=== PATIENT | female | born 1965 | race Caucasian/White ===

== ENCOUNTER → 2016-07-01 | Outpatient (CLI) | payer OTHER ==
--- NOTE | 2016-07-01 16:18 | DX ---
PA and Lateral Chest History: Cough and fever in a 51-year-old female; comparison to the previous study May 23, 2014. Findings: The heart and mediastinal contours are normal. Pulmonary vascularity is normal. There is m ild central peribronchial thickening. There are no alveolar opacities seen to suggest pneumonia. Postoperative changes of anterior cervical fusion are noted. Impression: Findings consistent with airways disease are noted..
== END ==
LOC: BMCIMAGING 15:04
PROVIDERS: ATTEND Family Medicine
DX: R50.9 Fever, unspecified (principal); R05 Cough

== ENCOUNTER 2017-10-10 12:46 | Emergency (ER) | payer OTHER ==
--- NOTE | 2017-10-10 14:04 | EDPHY ---
H & P Stated Complaint: CERVICAL NECK [id number]/CHRONIC NECK PAIN WORSE 5 WKS/SEES LOWPOINT Time Seen by Provider: 10/10/17 14:03 - Personal History LMP (Females 10-55): Post Menopausal Current Tetanus/Diphtheria Vaccine: Yes - Medical/Surgical History Hx Asthma: No Hx Chronic Respiratory Disease: No Hx Diabetes: No Hx Cardiac Disease: Yes Hx Renal Disease: No Hx Cirrhosis: No Hx Alcoholism: Yes Hx HIV/AIDS: No Hx Splenectomy or Spleen Trauma: No Other PMH: CERVICAL FUSION/ALCHOLISM STOPPED DRINKING 3 DAYS AGO MVP/PFO - Social History Smoking Status: Former smoker Constitutional: Initial Vital Signs Temperature (C) 36.5 C 10/10/17 12:53 Heart Rate 106 H 10/10/17 12:53 Respiratory Rate 17 10/10/17 12:53 Blood Pressure 171/82 H 10/10/17 12:53 O2 Sat (%) 93 10/10/17 12:53 O2 Delivery Mode Room Air Allergies/Adverse Reactions: No Known Allergies Allergy (Verified 10/10/17 12:52) Home Medications: Medication Instructions Recorded DULoxetine 10/10/17 LORazepam [Ativan 1 mg (RX)] 1 mg PO TID PRN #14 tab 10/10/17 Naltrexone 10/10/17 methylPREDNISolone [Medrol Dose 1 each PO AD #1 ea 10/10/17 Angel] oxyCODONE IR [Oxycodone Ir (*)] 5 mg PO Q4-6PRN PRN #20 tab 10/10/17 Medical Decision Making ED Course/Re-evaluation: CHIEF COMPLAINT: Neck pain HISTORY OF PRESENT ILLNESS: The patient is a 52 y/o female with a history of cervical fusion and alcoholism complaining of severe left-sided neck pain radiating into her left arm. About 5 weeks ago she tripped going up the stairs and landed on her right hip. After this event she developed left-sided neck pain that has persisted and worsened. She has been using Tylenol, ibuprofen, and heat for pain and says when she's had this pain previously it has resolved after about a week. Two weeks ago she was seen by her [facility] provider and now has an MRI scheduled for tomorrow. Her pain is causing difficulty finding any position of comfort. She notes she stopped naltrexone last Wednesday under her doctor's guidance and is not drinking currently. No recent infectious symptoms or other trauma. REVIEW OF SYSTEMS: A 10 point review of systems was performed and is negative with the exception of the elements mentioned in the history of present illness. PHYSICAL EXAM: HR, BP, O2 Sat, RR. Temp noted General Appearance: Alert, well hydrated, appropriate, and non-toxic appearing. Head: Atraumatic without scalp tenderness or obvious injury Eyes: Pupils equal, round, reactive to light and accommodation, EOMI, no trauma , no injection. Nose: Atraumatic, no rhinorrhea, clear. Throat: Mucus membranes moist. Neck: Supple, nontender, no lymphadenopathy. Respiratory: No retractions, no distress, no wheezes, and no accessory muscle use. Lungs are clear to auscultation bilaterally. Cardiovascular: Regular rate and rhythm, no murmurs, rubs, or gallops. Good capillary refill all extremities. Gastrointestinal: Abdomen is soft, nontender, non-distended, no masses, no rebound, no guarding, no peritoneal signs. Musculoskeletal: Normal active ROM of all extremities, atraumatic. Left trapezius tenderness. Neurological: Alert, appropriate, and interactive. Left triceps weakness. Otherwise nonfocal. Skin: No rashes, good turgor, no nodules on palpation. Past medical history: Alcoholism, PFO, disc herniation Past surgical history: Cervical fusion 2012 - Dr. Tenorio Family history: Noncontributory Social history: [facility] patient, son at bedside. DIFFERENTIAL DIAGNOSIS: The differential diagnosis for the patient's back pain included but was not limited to cervical radiculopathy, musculoskeletal pain, epidural abscess, herniated disk, spinal fracture, and intra-abdominal causes including urinary system. MEDICAL DECISION MAKING: This is a 52 y/o female with a prior cervical fusion who presents with worsening cervical radiculopathy secondary to a mechanical fall 5 weeks ago. Symptoms are not controlled at home with NSAIDs, heat, and other OTC measures. She has already been evaluated by her [facility] physician and has an MRI scheduled for tomorrow. She has left trapezius tenderness and left triceps weakness on exam, consistent with cervical radiculopathy. She currently requires better symptom management so she can get through her MRI tomorrow. Plan for discharge with scripts for OxyIR, Medrol dose pack, and Ativan. Follow up and return precautions discussed. She is comfortable with this plan. Departure - Departure Disposition: Home, Routine, Self-Care Clinical Impression: Cervical radiculopathy Condition: Good Instructions: Oxycodone, Rapid Release (By mouth), Methylprednisolone (By mouth ), Cervical Radiculopathy (ED) Additional Instructions: 1. Take Medrol dose pack as directed. Be sure to complete the entire prescription. 2. Use OxyIR as prescribed as needed for severe pain. This medication can make you drowsy, do not use while driving. It can also cause constipation - take appropriate precautions. Okay to continue Tylenol and ibuprofen use. 3. Use Ativan as directed just prior to your scheduled MRI tomorrow. It can make you drowsy, do not drive while using it. 4. Follow up with your neurosurgeon as planned. 5. Return to the ED for worsening of condition. Referrals: Jack Tenorio MD [Medical Doctor] - As per Instructions Prescriptions: LORazepam [Ativan 1 mg (RX)] 1 mg PO TID PRN #14 tab PRN Reason: Anxiety methylPREDNISolone [Medrol Dose Angel] 1 each PO AD #1 ea oxyCODONE IR [Oxycodone Ir (*)] 5 mg PO Q4-6PRN PRN #20 tab PRN Reason: Pain, Moderate Report Scribed for: Feng Stein Report Scribed by: Jannet Rolon Date of Report: 10/10/17 Time of Report: 14:29
[2017-10-10] MEDS ORDERED: OXYCODONE/APAP 5/325MG PREPACK#4 BTL TAKEHOME ONE (14:24)
[2017-10-10 14:30] VITALS: BP 158/90
== END 2017-10-10 14:30 | disposition home or self-care (01) ==
DX: M54.12 Radiculopathy, cervical region (principal); Z87.891 Personal history of nicotine dependence